=== PATIENT | female | born 1965 | race Caucasian/White ===

== ENCOUNTER 2019-01-24 09:22 | Inpatient (IN) | payer SELFPAY ==
[~2019-01-24] VITALS: Ht 160 cm; Wt 81.6 kg
[2019-01-24] MEDS ORDERED: TRAM50TA3 PO (09:38)
[2019-01-24] MEDS ORDERED: KETOROLAC 30MG/ML VIAL IV STA (10:14)
[2019-01-24] MEDS ORDERED: ACETAMINOPHEN 325MG TABLET PO STA (10:14)
[2019-01-24] MEDS ORDERED: ONDANSETRON HCL 4MG/2ML INJ IV STA (10:14)
[2019-01-24] MEDS ORDERED: SODIUM CHLORIDE 0.9% 1000ML BAG (SEPSIS BOLUS) IV ONE (10:15)
[2019-01-24 10:45] LABS: HEMATOCRIT. 37.2 % (36.0-48.0); HEMOGLOBIN. 12.7 g/dL (12.0-16.0); MEAN CORPUSCULAR HEMOGLOBIN 28.7 pg (28.0-32.0); MEAN CORPUSCULAR VOLUME 84.4 fL (81.0-99.0); MEAN PLATELET VOLUME 8.8 fl (7.4-10.4); PLATELET 246 x1000/uL (130-400); RED BLOOD CELL COUNT 4.41 mill/uL (4.2-5.4); RED CELL DISTRIBUTION WIDTH 13.9 % (11.6-14.6)
[2019-01-24 10:53] LABS: INR 0.9; PROTHROMBIN TIME 9.6 sec (9.6-11.0)
[2019-01-24 10:56] LABS: CHLORIDE 108 mEq/L (98-107)
[2019-01-24 11:00] LABS: ETHANOL BLOOD < 10 mg/dL
[2019-01-24 11:05] LABS: CREATINE KINASE 30 IU/L (26-192); PLATELET ESTIMATE NORMAL
[2019-01-24 11:09] LABS: CREATINE KINASE MB FRACTION < 1.0 ng/mL (0.5-3.6)
[2019-01-24] MEDS ORDERED: ONDANSETRON HCL 4MG/2ML INJ IV ONE (11:15)
[2019-01-24 11:23] LABS: CLARITY URINE CLEAR (CLEAR); COLOR URINE YELLOW (YELLOW); KETONES URINE NEGATIVE (NEGATIVE); LEUKOCYTE ESTERASE URINE 1+ (NEGATIVE); NITRITE URINE NEGATIVE (NEGATIVE); OCCULT BLOOD URINE NEGATIVE (NEGATIVE); PH URINE 5.5 (4.5-8.0); PROTEIN URINE NEGATIVE (NEGATIVE); SPECIFIC GRAVITY URINE 1.013 (1.005-1.030)
[2019-01-24] MEDS ORDERED: ONDANSETRON 4MG ODT PO ONE ×2 (11:30)
[2019-01-24 11:48] LABS: *AMPHETAMINES SCREEN URINE NEGATIVE (NEGATIVE); *BARBITURATES SCREEN URINE NEGATIVE (NEGATIVE); *BENZODIAZEPINES SCREEN URINE PRESUMTIVE POSITIVE (NEGATIVE); *COCAINE SCREEN URINE NEGATIVE (NEGATIVE)
[2019-01-24 11:49] LABS: CANNABINOID URINE SCREEN NEGATIVE (NEGATIVE); METHADONE URINE SCREEN NEGATIVE (NEGATIVE); OPIATES URINE SCREEN NEGATIVE (NEGATIVE); PHENCYCLIDINE URINE SCREEN NEGATIVE (NEGATIVE)
[2019-01-24] MEDS ORDERED: PIPERACILLIN/TAZ 3.375G PREMIX 50 ML IV ONE (12:00)
[2019-01-24] MEDS ORDERED: VANCOMYCIN 1 G PREMIX 200 ML IV SCH (12:00)
[2019-01-24] MEDS ORDERED: MORPHINE SULFATE 4 MG/ML CPJ (NOT FOR IM USE) IV ONE (15:45)
[2019-01-24 18:00] VITALS: BP 135/61
[2019-01-24] MEDS ORDERED: ALPR-340 MT (19:18)
[2019-01-24] MEDS ORDERED: NEBI2.5T2 MT (19:19)
[2019-01-24] MEDS ORDERED: SULI200T4 MT (19:20)
[2019-01-24] MEDS ORDERED: HYDRALAZINE 20MG/ML VIAL IV PRN (20:00)
[2019-01-24] MEDS ORDERED: DIPHENHYDRAMINE 50MG/ML VIAL IV PRN (20:00)
[2019-01-24] MEDS ORDERED: IPRATROPIUM/ALBUTEROL 0.5-3(2.5)MG/3ML NEB INH PRN (20:00)
[2019-01-24] MEDS ORDERED: GUAIFENESIN 200MG/10ML SUGAR FREE UDC PO PRN (20:00)
[2019-01-24] MEDS ORDERED: ACETAMINOPHEN 325MG TABLET PO PRN (20:00)
[2019-01-24] MEDS ORDERED: HYDROMORPHONE HCL/PF 2MG/ML CPJ IV PRN (20:00)
[2019-01-24] MEDS ORDERED: DOCUSATE SODIUM 100MG CAPSULE PO PRN (20:00)
[2019-01-24] MEDS ORDERED: CLONIDINE 0.1MG TABLET PO PRN (20:00)
[2019-01-24] MEDS ORDERED: MAGNESIUM/ALUMINUM HYDROXIDE/SIMETHICONE 30ML UDC PO PRN (20:00)
[2019-01-24] MEDS ORDERED: HYDROCODONE/ACETAMINOPHEN 10/325MG TABLET PO PRN (20:00)
[2019-01-24] MEDS ORDERED: ONDANSETRON HCL 4MG/2ML INJ IV PRN (20:00)
[2019-01-24] MEDS ORDERED: NA PHOS,M-B/NA PHOS,DI-BA ENEMA 118ML PR PRN (20:00)
[2019-01-24] MEDS ORDERED: ENOXAPARIN 40MG/0.4ML SYR SUBCUT SCH (20:00)
[2019-01-24] MEDS ORDERED: LORAZEPAM 2MG/ML CPJ IV PRN (20:00)
[2019-01-24 21:00] VITALS: BP 148/77
[2019-01-24] MEDS: PIPERACILLIN/TAZ 3.375G PREMIX 50 ML IV SCH (21:16)
[2019-01-24] MEDS: SODIUM CHLORIDE 0.45% 1,000 ML IV SCH (21:17)
[2019-01-24] MEDS: SODIUM CHLORIDE 0.9% INJ 3ML FLUSH IVF SCH (21:17)
[2019-01-24 23:25] LABS: CREATINE KINASE 30 IU/L (26-192)
[2019-01-24 23:27] LABS: CREATINE KINASE MB FRACTION < 1.0 ng/mL (0.5-3.6)
[2019-01-25] VITALS: BP 125/55
[2019-01-25] MEDS: PIPERACILLIN/TAZ 3.375G PREMIX 50 ML IV SCH ×2 (02:48→09:45)
[2019-01-25 04:00] VITALS: BP 130/65
[2019-01-25] MEDS: SODIUM CHLORIDE 0.9% INJ 3ML FLUSH IVF SCH (05:34)
[2019-01-25 06:26] LABS: HEMATOCRIT. 37.7 % (36.0-48.0); HEMOGLOBIN. 12.8 g/dL (12.0-16.0); MEAN CORPUSCULAR HEMOGLOBIN 28.8 pg (28.0-32.0); MEAN CORPUSCULAR VOLUME 84.9 fL (81.0-99.0); MEAN PLATELET VOLUME 9.6 fl (7.4-10.4); PLATELET 230 x1000/uL (130-400); RED BLOOD CELL COUNT 4.44 mill/uL (4.2-5.4); RED CELL DISTRIBUTION WIDTH 14.4 % (11.6-14.6)
[2019-01-25 07:20] LABS: CHLORIDE 109 mEq/L (98-107)
[2019-01-25 07:41] LABS: CREATINE KINASE 36 IU/L (26-192)
[2019-01-25 07:44] LABS: CREATINE KINASE MB FRACTION < 1.0 ng/mL (0.5-3.6)
[2019-01-25] MEDS: SODIUM CHLORIDE 0.45% 1,000 ML IV SCH (09:45)
[2019-01-26 17:04] LABS: PLATELET ESTIMATE NORMAL
== END 2019-01-25 11:20 | disposition left against medical advice (07) | DRG 723 ==
LOC: ER 09:49 → 8WST 11:46 → EDBEDREQ 14:28 → EDBEDREQSVC 14:28 → ENRESERV 15:56
PROVIDERS: ADMIT Internal Medicine; ATTEND Internal Medicine
DX: A90 Dengue fever [classical dengue] (principal); E46 Unspecified protein-calorie malnutrition; M35.00 Sjogren syndrome, unspecified; F17.210 Nicotine dependence, cigarettes, uncomplicated; I10 Essential (primary) hypertension; N39.0 Urinary tract infection, site not specified; Z53.21 Procedure and treatment not carried out due to patient leaving prior to being seen by health care provider; Z90.710 Acquired absence of both cervix and uterus; Z68.31 Body mass index [BMI] 31.0-31.9, adult
CPT/HCPCS: 36415; 71045; 80305; 80320; 82550; 82553; 83605; 83880; 84145; 84443; 84484; 86790; 87077; 87186; 87804; 93005; 96374; 99285; J1885; J2060; J2270; J2405; J2543; J3370; J7030; Q0162; G0480